=== PATIENT | female | born 1985 | race African-American/Black ===

== ENCOUNTER 2021-01-19 08:42 | Emergency (ER) | payer MEDICAID ==
[~2021-01-19] VITALS: Ht 175.3 cm; Wt 82.6 kg
--- NOTE | 2021-01-19 09:00 | NUR ---
Patient bibs for c/o headache/migraine that started last saturday. Patient states she took meds for the headache with no effect. Patient also c/o nausea. Patient alert and oriented x4. Respirations even and unlabored. Will continue to monitor.
--- NOTE | 2021-01-19 09:25 | NUR ---
Pt out to ct
[2021-01-19 09:30] VITALS: BP 117/60
--- NOTE | 2021-01-19 09:35 | NUR ---
Rolf pal in [facility] - 01/19/21 at 0937 by [email or web address] Patient assisted to bathroom for the second time for urine sample, patient unable to urinate at the moment.
[2021-01-19] MEDS ORDERED: SUMA50TA PO (09:42)
--- NOTE | 2021-01-19 09:51 | NUR ---
Patient discharged to home in stable condition. Written and verbal after care instructions given. Patient verbalizes understanding of instruction.
== END 2021-01-19 09:53 | disposition home or self-care (01) ==
LOC: ER 08:55
DX: R51.9 Headache, unspecified (principal); Z79.899 Other long term (current) drug therapy
CPT/HCPCS: 70450-TC; 84703-TC